=== PATIENT | male | born 1955 | race Caucasian/White ===

== ENCOUNTER 2022-01-04 14:59 | Outpatient (CLI) | payer MEDICARE, SELFPAY | END 2022-01-04 15:00 | disposition home or self-care (01) | LOC: ANHGOSHLAB 15:06 | DX: R30.0 Dysuria (principal) | CPT/HCPCS: 87086 ==

== ENCOUNTER 2024-01-05 14:38 | Emergency (ER) | payer MEDICARE, SELFPAY ==
[2024-01-05 14:48] VITALS: BP 137/69; PULSE 52; RESP 18; TEMP 36.6; O2SAT 100
--- NOTE | 2024-01-05 15:12 | ED.EAR ---
HPI - Ear Problem General Chief complaint: Ear Stated complaint: R EAR PAIN / ODOR FROM L EAR Time Seen by Provider: 01/05/24 14:50 Source: patient and RN notes reviewed Mode of arrival: ambulatory Limitations: no limitations History of Present Illness HPI Narrative: Patient presents today complaining of an odor from the left ear that started yesterday and clogging with some occasional pain to the right ear for a few days. Denies any additional symptoms to include drainage, cough, congestion. Related Data Home Medications Medication Instructions Recorded Confirmed amlodipine 5 mg tablet 5 mg PO DAILY 01/05/24 01/05/24 ezetimibe 10 mg tablet 10 mg PO DAILY 01/05/24 01/05/24 levothyroxine 88 mcg capsule 88 mcg PO DAILY 01/05/24 01/05/24 lisinopril 40 mg tablet 40 mg PO DAILY 01/05/24 01/05/24 rosuvastatin 10 mg tablet 10 mg PO DAILY 01/05/24 01/05/24 sildenafil 50 mg tablet 50 mg PO PRN PRN Erectile 01/05/24 01/05/24 Dysfunction spironolactone 25 mg tablet 25 mg PO DAILY 01/05/24 01/05/24 Allergies Allergy/AdvReac Type Severity Reaction Status Date / Time atorvastatin Allergy Swelling Verified 01/05/24 14:55 Review of Systems Review of Systems: CONSTITUTIONAL: Denies body aches, fever, chills, or sweats. EYES: Denies visual changes, redness, or discharge. ENT: Denies rhinorrhea, congestion, sore throat. + right ear clogging, left ear odor CARDIOVASCULAR: Denies chest pain, palpitations, or edema. RESPIRATORY: Denies cough or dyspnea. GASTROINTESTINAL: Denies abdominal pain, nausea, vomiting, or diarrhea. GENITOURINARY: Denies dysuria or hematuria. SKIN: Denies rash, itching, or wounds. MUSCULOSKELETAL: Denies back pain, joint pain, or myalgia. NEUROLOGIC: Denies headache, numbness, tingling, or weakness. PSYCH: Denies depression or anxiety. [facility] Past Medical History Medical History (Updated 01/05/24 @ 16:20 by Stacie Wells, HISTOPATH TECH, ) High cholesterol Hypertension Hypothyroidism Comments At time of signature, I have reviewed and agree with nursing past medical, surgical, social and family history unless otherwise noted. Please see nursing chart for further information. There is no relevant family history pertinent to the presenting complaint Exam Narrative: GENERAL: Well-appearing, well-nourished, and in no acute distress. HEAD: Normocephalic, atraumatic. EYES: EOMI. No redness or drainage. Conjunctivae normal. ENT: Mucous membranes pink and moist. Nares clear. No rhinorrhea. Throat normal. Uvula midline. Mild right middle ear effusion without evidence of bacterial infection. Left cerumen impaction. See procedure NECK: Normal AROM. CHEST: No respiratory distress. Clear to auscultation. HEART: Regular rate and rhythm. No murmur appreciated. EXTREMITIES: Normal range of motion. No edema. SKIN: Warm, dry, no rash. Capillary refill normal. Normal skin turgor. NEURO: No focal deficits. Alert and oriented x3. Gait steady. PSYCH: Normal affect. No signs of depression or anxiety. Course Course Level of Care: Express Care Visit Vital Signs Vital signs: Vital Signs Temperature 97.8 F 01/05/24 14:48 Pulse Rate 52 L 01/05/24 14:48 Respiratory Rate 01/05/24 14:48 Blood Pressure 137/69 01/05/24 14:48 Pulse Oximetry 100 01/05/24 14:48 Oxygen Delivery Room Air 01/05/24 14:48 Temperature 97.8 F 01/05/24 14:48 Pulse Rate 52 L 01/05/24 14:48 Respiratory Rate 18 01/05/24 14:48 Blood Pressure 137/69 01/05/24 14:48 Pulse Oximetry 100 01/05/24 14:48 Oxygen Delivery Room Air 01/05/24 14:48 Reviewed Procedures Ear Wax Removal Left Ear: Ear Wax Removal Date: 01/05/24 Ear Wax Removal Time: 15:12 Results: Re-examined: cerumen removed completely TM Examination: TM(s) intact, normal appearance Ear Canal Exam: atraumatic Patient Tolerated Procedure: well Complications: no problems Technique: e
== END 2024-01-05 15:17 | disposition home or self-care (01) ==
PROVIDERS: Emergency Provider Nurse Practitioner
DX: H65.01 Acute serous otitis media, right ear (principal); H61.22 Impacted cerumen, left ear; E78.00 Pure hypercholesterolemia, unspecified; I10 Essential (primary) hypertension; E03.9 Hypothyroidism, unspecified
CPT/HCPCS: 69209; 99212; G0463